=== PATIENT | male | born 1955 | race Caucasian/White ===

== ENCOUNTER → 2017-04-04 | Outpatient (CLI) | payer BC ==
[~2017-04-04] MED LIST: CEPH500C PO; CPR500 PO; IBUP-1050 PO; METR-163 PO; PRCUNK PO
--- NOTE | 2017-04-04 10:45 | DIAGNOSTIC IMAGING REPORT ---
RIGHT KNEE 3 VIEWS, AP VIEW OF BILATERAL KNEES HISTORY: RIGHT KNEE PAIN COMPARISON: None. FINDINGS: Cartilage spaces are maintained for age. No fracture or dislocation within the right or left knee. No soft tissue swelling within the right knee. No significant right knee effusion. Soft tissues are unremarkable. No radiopaque foreign bodies. IMPRESSION: No significant abnormality within the right knee. Electronically signed by: Gopi Harman M.D. 04/04/2017 10:44 AM Dictated Date/Time: 04/04/2017 10:42 AM
== END | disposition home or self-care (01) ==
LOC: C.RDSM 10:29
PROVIDERS: ATTEND Internal Medicine
DX: M25.561 Pain in right knee (principal)